=== PATIENT | male | born 1965 | race African-American/Black ===

== ENCOUNTER 2018-01-17 10:20 | Emergency (ER) | payer OTHER ==
[2018-01-17 10:27] VITALS: BP 166/99; PULSE 64; TEMP 98.4; BMI 29.1
[2018-01-17 10:56] LABS: URINE APPEARANCE CLEAR; URINE BILIRUBIN NEGATIVE (<2.0 mg/dL); URINE COLOR YELLOW; URINE GLUCOSE (UA) NEGATIVE (NEGATIVE); URINE KETONE TRACE (NEGATIVE); URINE LEUK ESTERASE NEGATIVE (NEGATIVE); URINE NITRITE NEGATIVE (NEGATIVE); URINE PROTEIN NEGATIVE (NEGATIVE)
--- NOTE | 2018-01-17 10:56 | PDOC ---
History of Present Illness - General Chief Complaint: Injury Stated Complaint: WORK RELATED INJURY Time Seen by Provider: 01/17/18 10:29 History Source: Patient Exam Limitations: No Limitations - History of Present Illness Initial Comments: 01/17/18 10:50 53 yr male no pmhx states he fell backwards off ladder fridayJanuary 14 at work landed on kitchen appliances injuring back. no head trauma or LOC. Pt states the pain has pregressively gotten worse today worse when standing from sitting . no abd pain , neg urine pr bowel dysfunction. pt took 600mg advil at 9am today. Occurred: reports: last week Severity: reports: moderate Pain Location: reports: back Method of Injury: Yes: fall Loss of Consciousness: no loss of consciousness Associated Symptoms (Fall): denies symptoms Past History - Past Medical History Allergies/Adverse Reactions: Allergies Allergy/AdvReac Type Severity Reaction Status Date / Time No Known Allergies Allergy Verified 01/17/18 10:27 Home Medications: Ambulatory Orders No Home Medications 0 dose .ROUTE UTDICT 12/02/13 Ibuprofen 800 mg PO TID #30 tablet 07/04/16 Methocarbamol [Robaxin -] 500 mg PO TID #30 tablet 07/04/16 Oxycodone HCl/Acetaminophen [Percocet 5-325 mg Tablet] 1 - 2 tab PO Q6H #20 tablet MDD 4 07/04/16 Cyclobenzaprine HCl [Flexeril -] 10 mg PO TID PRN #21 tablet 01/17/18 COPD: No - Immunization History Immunization Up to Date: Yes - Suicide/Smoking/Psychosocial Hx Smoking History: Never smoked Hx Alcohol Use: Yes (occassionally.) Drug/Substance Use Hx: Yes ("MOLLIES,MARIJUANA") Substance Use Type: Alcohol Trauma Specific PMHX - Complaint Specific PMHX Back Injury: No Neck Injury: No Review of Systems - Review of Systems Able to Perform ROS?: Yes Is the patient limited Ivorian proficient: No Constitutional: No: Symptoms Reported HEENTM: No: Symptoms Reported Respiratory: No: Symptoms reported Cardiac (ROS): No: Symptoms Reported ABD/GI: No: Symptoms Reported : No: Symptoms Reported Musculoskeletal: Yes: Symptoms Reported Integumentary: No: Symptoms Reported Neurological: No: Symptoms reported *Physical Exam - Vital Signs Last Vital Signs Temp Pulse Resp BP Pulse Ox 98.4 F 64 18 166/99 99 01/17/18 10:22 01/17/18 10:22 01/17/18 10:22 01/17/18 10:22 01/17/18 10:22 - Physical Exam General Appearance: Yes: Nourished, Appropriately Dressed HEENT: positive: EOMI, S[place]IAG[place], Normal ENT Inspection, TMs Normal, Pharynx Normal Neck: positive: Supple. negative: Tender Respiratory/Chest: positive: Lungs Clear, Normal Breath Sounds Cardiovascular: positive: Regular Rhythm, Regular Rate Gastrointestinal/Abdominal: positive: Normal Bowel Sounds, Soft Musculoskeletal: positive: Normal Inspection, Other (parapsinal soft tissue tenderness lumbar and thoracic, neg CVA tenderness). negative: Vertebral Tenderness Extremity: positive: Normal Capillary Refill, Normal Inspection, Normal Range of Motion Integumentary: positive: Normal Color, Dry, Warm Neurologic: positive: Fully Oriented, Alert, Normal Mood/Affect, Normal Response , Motor Strength 5/5 ED Treatment Course - RADIOLOGY Radiology Studies Ordered: Category Date Time Status SPINE-LUMBAR SACRAL [RAD] Stat Radiology 01/17/18 10:44 Ordered SPINE-THORACIC [RAD] Stat Radiology 01/17/18 10:44 Ordered Chest X-Ray Result: Other (preliminary negative) Medical Decision Making - Medical Decision Making 01/17/18 10:52 cc: mechanical fall 3 days ago injured mid to low back no evidence of trauma on exam neg vetebral tenderness on exam TTP soft tissue paraspinal muscles lumbar to thoracic will check UA for blood xrays spine r/o fracture, pt took advil [employer] WORK[employer] states the pain has improved with the medicine *DC/Admit/Observation/Transfer Diagnosis at time of Disposition: Lower back injury Qualifiers: Encounter type: initial encounter Qualified Code(s): S39.92XA - Unspecified injury of lower back, initial encounter - Discharge Dispostion Disposition: HOME Condition at time of disposition: Good - Prescriptions Prescriptions: Cyclobenzaprine HCl [Flexeril -] 10 mg PO TID PRN #21 tablet PRN Reason: Muscle Spasms - Referrals Referrals: Herb Delgado MD [Staff Physician] - - Patient Instructions Printed Discharge Instructions: How to Prevent Falls Additional Instructions: follow with your doctor or the orthopedist next week for follow up we will call you if any changes in the xray reading by radiologist take the medication as prescribed for any muscle spasm/tightening of muscles you can take with ibuprofen (advil, motrin) 600mg every 8hrs for pain as needed apply warm compresses, heating pad to your back every 3hrs for 20 minutes - Post Discharge Activity
== END 2018-01-17 11:43 | disposition home or self-care (01) ==
LOC: JERFT 10:20
DX: S39.82XA Other specified injuries of lower back, initial encounter (principal); S29.8XXA Other specified injuries of thorax, initial encounter; W11.XXXA Fall on and from ladder, initial encounter; Y93.89 Activity, other specified; Y92.69 Other specified industrial and construction area as the place of occurrence of the external cause; Y99.0 Civilian activity done for income or pay
CPT/HCPCS: 72070-TC-FY; 72100-TC-FY; 81003; 99281-25

== ENCOUNTER 2021-03-30 07:52 | Emergency (ER) | payer OTHER ==
[2021-03-30 07:58] VITALS: BP 153/85; PULSE 56; TEMP 98.5; BMI 27.4
[2021-03-30] MEDS ORDERED: IBUPROFEN 400 MG TABLET (FP) PO ONE ×2 (08:45→09:26)
[2021-03-30] MEDS ORDERED: ACETAMINOPHEN 325 MG TABLET (FP) PO ONE (08:52)
[2021-03-30] MEDS ORDERED: ACETAMINOPHEN INJECTION 100 ML IVPB ONE (09:24)
[2021-03-30 10:48] LABS: PH,URINE 5.5 (5.0-8.0); URINE APPEARANCE CLEAR; URINE BILIRUBIN NEGATIVE (NEGATIVE); URINE COLOR YELLOW; URINE GLUCOSE (UA) NEGATIVE (NEGATIVE); URINE KETONE NEGATIVE (NEGATIVE); URINE LEUK ESTERASE NEGATIVE (NEGATIVE); URINE NITRITE NEGATIVE (NEGATIVE); URINE PROTEIN NEGATIVE (NEGATIVE); URINE UROBILINOGEN 0.2 mg/dL (0.2-1.0)
== END 2021-03-30 12:22 | disposition home or self-care (01) ==
LOC: JER 07:52
DX: N50.812 Left testicular pain (principal); R35.0 Frequency of micturition; I86.1 Scrotal varices
CPT/HCPCS: 36415; 76870-TC; 81003; 87086; 87491; 87591; 87661; 99284-25